=== PATIENT | female | born 1935 | race Caucasian/White ===

== ENCOUNTER 2016-12-28 11:29 | Emergency (ER) | payer OTHER ==
--- NOTE | 2016-12-28 12:22 | ED CLINICAL REPORT ---
Clinical Report - Physicians/Mid Levels [facility] [address] [place] [address] 12/28/2016 11:30 Patient: ZACH DIAMOND Time Seen: 12:09; initial patient contact. Arrived- By private vehicle. Historian- patient. HISTORY OF PRESENT ILLNESS Chief Complaint: UPPER EXTREMITY PAIN and SWELLING. (Pt reports a possible spider bite one week ago. She reports pain, redness and swelling to the area.).). Severity is described as being mild. The quality is noted to be aching. Modifying factors- made better by rest. Symptoms located in the area of the right wrist. The patient has had redness and swelling. Similar symptoms previously: None. Recent medical care: Not recently seen/assessed. REVIEW OF SYSTEMS No fever, chills, enlarged lymph nodes or neck pain. She has had a mild, itchy skin rash consisting of "redness" (right wrist). All systems otherwise negative, except as recorded above. PAST HISTORY See nurses notes. Problems: Asthma. Migraine Headache. Medications: Brimonidine Tartrate Ophthalmic. Albuterol Sulfate Inhalation. Flowvent. Gabapentin Oral 100 mg, at bedtime. Lisinopril Oral 5 mg, daily. Carvedilol Oral 6.5 mg , 2 x day. Simvastatin Oral 40 mg. Aspirin Childrens Oral. Allergies: No Known Drug Allergy. SOCIAL HISTORY Never smoker. No alcohol use or drug use. FAMILY HISTORY Negative. ADDITIONAL NOTES The nursing notes have been reviewed with agreement regarding the chief complaint, HPI, ROS, PMH and patient medications and allergies. PHYSICAL EXAM Vital Signs: 12/28/2016 11:44 BP: 152/62. HR: 62. RR: 20. O2 saturation: 100%. Temp: 97.9 F. Pain level now: 8/10. Have been reviewed. Hypertensive. Appearance: Alert. Oriented X3. No acute distress. Eyes: Pupils equal, round and reactive to light. Eyes normal inspection. Neck: Normal inspection. Neck supple. CVS: Normal heart rate and rhythm. Heart sounds normal. Respiratory: No respiratory distress. Breath sounds normal. Extremities: Swelling, warmth and erythema present in the right wrist. No drainage or lymphangitis. No upper extremity pulse deficit present. Upper extremity capillary refill not prolonged. Mild 1+ non-pitting edema of the right upper extremity involving the hand. No axillary adenopathy. Negative Tinel sign. Negative Alanna test. Right wrist: mild erythema and swelling located in the dorsal aspect of the wrist. Neurovascular intact distally. No tenderness. No joint effusion or limitation in ROM. Extremities otherwise negative. PROGRESS AND PROCEDURES Course of Care: Patient is stable. CLINICAL IMPRESSION Cellulitis of the right wrist. No foreign body present. INSTRUCTIONS Apply ice for 10 minutes three times a day for two days. Elevate affected areas above chest level. No strenuous activity. No dietary restrictions. Warnings: Further evaluation is necessary. It is very important to follow up with a physician. GENERAL WARNINGS: Return or contact your physician immediately if your condition worsens or changes unexpectedly, if not improving as expected, or if other problems arise. Prescription Medications: Trimethoprim-Sulfamethoxazole DS: take 1 tablet orally every 12 hours for 10 days. No refill. Follow-up: Return to the emergency department if not better. Follow up with your doctor in two days if not better. Understanding of the discharge instructions verbalized by patient. (Electronically signed by Kimi Nguyễn PA-C 12/28/2016 20:21)
--- NOTE | 2016-12-28 12:22 | ED NURSING NOTES ---
Clinical Report - Nurses [place] [address] [place] [address] 12/28/2016 11:30 Patient: ZACH DIAMOND TRIAGE Acuity: LEVEL 4. Chief Complaint: SPIDER BITE. Alert. No acute distress. SEPSIS SCREEN: Sepsis Screen. Negative (no infection suspected/documented). --11:52 Joann Batista R.N. 11:44 12/28/16. BP: 152/62. HR: 62. RR: 20. O2 saturation: 100%. Temp: 97.9 F (oral). Pain level now: 04/17. --11:52 Joann Batista R.N. Weight: 55.7 kg stated. Height/Length: 62 inches Per Patient. BMI: 22.5. --11:50 Joann Btaista R.N. Medications Aspirin Childrens Oral. --11:46 Joann Batista R.N. Simvastatin Oral 40 mg. --11:47 Joann Batista R.N. Carvedilol Oral 6.5 mg , 2 x day. --11:48 Joann Batista R.N. Lisinopril Oral 5 mg, daily. --11:48 Joann Batista R.N. Gabapentin Oral 100 mg, at bedtime. --11:48 Joann Batista R.N. Flowvent. --11:48 Joann Batista R.N. Albuterol Sulfate Inhalation. --11:48 Joann Batista R.N. Brimonidine Tartrate Ophthalmic. --11:49 Joann Batista R.N. Allergies No Known Drug Allergy. --11:49 Joann Batista R.N. Medication/allergy information source: the patient. --11:52 Joann Batista R.N. History Arrived by private vehicle. Historian: patient. Accompanied by spouse. Primary physician (Tereso). Location of injuries: left wrist. This occurred (1 weeks ago). Occurred at home. ( Pt reports a possible spider bite one week ago. She reports pain, redness and swelling to the area.). PAST MEDICAL HX: The patient has had a hysterectomy. SOCIAL HX: Smoker- current status unknown. Occasional alcohol use. No drug use. FALL RISK ASSESSMENT: Fall risk assessment completed. No fall risk identified. NUTRITIONAL RISK ASSESSMENT: The nutritional risk assessment revealed no deficiencies. FUNCTIONAL ASSESSMENT: Functional assessment: no impairments noted. LEARNING NEEDS ASSESSMENT: The learning needs assessment revealed no barriers. SKIN INTEGRITY ASSESSMENT: Skin integrity risk assessment completed. No skin integrity risk identified. --11:52 Joann Batista R.N. PROBLEMS: Migraine Headache. --11:50 Joann Batista R.N. Asthma. --11:52 Joann Batista R.N. The following entry was modified by Joann Batista R.N., 11:50 Reason - duplicate <<STRICKEN ENTRY-- Hypertension. --11:49 Joann Batista R.N. --END STRIKE>>. ADDITIONAL SURGERIES: Hysterectomy. Shoulder Surgery. Tonsillectomy. --11:52 Joann Batista R.N. Assessment GENERAL / NEURO / PSYCH: Alert. Oriented X 4. Appears in no acute distress. [place] Coma Scale: 15- eyes open spontaneously (4); best verbal response- oriented x 4 (5); best motor response- obeys commands (6). Patient appears calm and cooperative. RESPIRATORY: Respirations not labored. CVS: Capillary refill less than 2 seconds. GI / : Abdomen soft and nontender. SKIN: Mucous membranes are pink. Skin is warm and dry. --11:52 Joann Batista R.N. Interventions ID band on patient. To treatment room. --11:52 Joann Batista R.N. NURSING PROGRESS NOTES 11:52 12/28/16. Two patient identifiers checked. Call light placed in reach. Side rails up x 1. Bed placed in lowest position. Brakes of bed on. Patient ready for evaluation- chart flagged and ED physician and PA notified. --11:52 Joann Batista R.N. DISPOSITION / DISCHARGE Departure time: 12:25 Dec 28 2016. Condition at departure: improved and stable. No learning barriers present. Discharge instructions provided and reviewed with the patient. Reviewed medication(s). Prescription(s) given to the patient. Patient verbalized understanding. Written instructions provided in Latvian. The patient was discharged by the physician medical staff assistant. She was discharged home and accompanied by spouse. She left the Emergency Department ambulatory and via private vehicle. Spouse driving. --17:50 Joann Batista R.N. Locked/Released at 12/28/2016 17:50 by Joann Batista R.N.
--- NOTE | 2016-12-28 12:22 | ED NURSING NOTES ---
Clinical Report - Nurses [place] [address] [place] [address] 12/28/2016 11:30 Patient: ZACH DIAMOND TRIAGE Acuity: LEVEL 4. Chief Complaint: SPIDER BITE. Alert. No acute distress. SEPSIS SCREEN: Sepsis Screen. Negative (no infection suspected/documented). --11:52 Joann Batista R.N. 11:44 12/28/16. BP: 152/62. HR: 62. RR: 20. O2 saturation: 100%. Temp: 97.9 F (oral). Pain level now: 04/17. --11:52 Joann Batista R.N. Weight: 55.7 kg stated. Height/Length: 62 inches Per Patient. BMI: 22.5. --11:50 Joann Batista R.N. Medications Aspirin Childrens Oral. --11:46 Joann Batista R.N. Simvastatin Oral 40 mg. --11:47 Joann Batista R.N. Carvedilol Oral 6.5 mg , 2 x day. --11:48 Joann Batista R.N. Lisinopril Oral 5 mg, daily. --11:48 Joann Batista R.N. Gabapentin Oral 100 mg, at bedtime. --11:48 Joann Batista R.N. Flowvent. --11:48 Joann Batista R.N. Albuterol Sulfate Inhalation. --11:48 Joann Batista R.N. Brimonidine Tartrate Ophthalmic. --11:49 Joann Batista R.N. Allergies No Known Drug Allergy. --11:49 Joann Batista R.N. Medication/allergy information source: the patient. --11:52 Joann Batista R.N. History Arrived by private vehicle. Historian: patient. Accompanied by spouse. Primary physician (Tereso). Location of injuries: left wrist. This occurred (1 weeks ago). Occurred at home. ( Pt reports a possible spider bite one week ago. She reports pain, redness and swelling to the area.). PAST MEDICAL HX: The patient has had a hysterectomy. SOCIAL HX: Smoker- current status unknown. Occasional alcohol use. No drug use. FALL RISK ASSESSMENT: Fall risk assessment completed. No fall risk identified. NUTRITIONAL RISK ASSESSMENT: The nutritional risk assessment revealed no deficiencies. FUNCTIONAL ASSESSMENT: Functional assessment: no impairments noted. LEARNING NEEDS ASSESSMENT: The learning needs assessment revealed no barriers. SKIN INTEGRITY ASSESSMENT: Skin integrity risk assessment completed. No skin integrity risk identified. --11:52 Joann Batista R.N. PROBLEMS: Migraine Headache. --11:50 Joann Batista R.N. Asthma. --11:52 Joann Batista R.N. The following entry was modified by Joann Batista R.N., 11:50 Reason - duplicate <<STRICKEN ENTRY-- Hypertension. --11:49 Joann Batista R.N. --END STRIKE>>. ADDITIONAL SURGERIES: Hysterectomy. Shoulder Surgery. Tonsillectomy. --11:52 Joann Batista R.N. Assessment GENERAL / NEURO / PSYCH: Alert. Oriented X 4. Appears in no acute distress. [place] Coma Scale: 15- eyes open spontaneously (4); best verbal response- oriented x 4 (5); best motor response- obeys commands (6). Patient appears calm and cooperative. RESPIRATORY: Respirations not labored. CVS: Capillary refill less than 2 seconds. GI / : Abdomen soft and nontender. SKIN: Mucous membranes are pink. Skin is warm and dry. --11:52 Joann Batista R.N. Interventions ID band on patient. To treatment room. --11:52 Joann Batista R.N. NURSING PROGRESS NOTES 11:52 12/28/16. Two patient identifiers checked. Call light placed in reach. Side rails up x 1. Bed placed in lowest position. Brakes of bed on. Patient ready for evaluation- chart flagged and ED physician and PA notified. --11:52 Joann Batista R.N. DISPOSITION / DISCHARGE Departure time: 12:25 Dec 28 2016. Condition at departure: improved and stable. No learning barriers present. Discharge instructions provided and reviewed with the patient. Reviewed medication(s). Prescription(s) given to the patient. Patient verbalized understanding. Written instructions provided in Khmer. The patient was discharged by the physician assistant men's lacrosse coach. She was discharged home and accompanied by spouse. She left the Emergency Department ambulatory and via private vehicle. Spouse driving. --17:50 Joann Batisat R.N. Locked/Released at 12/28/2016 17:50 by Joann Batista R.N.
--- NOTE | 2016-12-28 20:21 | ED DISCHARGE INSTRUCTIONS ---
Patient: ZACH DIAMOND General Instructions [facility] VisitID: [id number] [place] [address] 81y, F Registration Date/Time: 12/28/2016 Cellulitis of the right wrist. No foreign body present. INSTRUCTIONS Apply ice for 10 minutes three times a day for two days. Elevate affected areas above chest level. No strenuous activity. No dietary restrictions. Warnings: Further evaluation is necessary. It is very important to follow up with a physician. GENERAL WARNINGS: Return or contact your physician immediately if your condition worsens or changes unexpectedly, if not improving as expected, or if other problems arise. Prescription Medications: Trimethoprim-Sulfamethoxazole DS: take 1 tablet orally every 12 hours for 10 days. No refill. Follow-up: Return to the emergency department if not better. Follow up with your doctor in two days if not better. Understanding of the discharge instructions verbalized by patient. ADDITIONAL INFORMATION Cellulitis You have an infection of the skin known as cellulitis. This usually starts with a scrape, cut, insect bite, blister or other opening in the skin which becomes infected. This is a serious condition. It must be watched closely to be sure the infection is not spreading. With antibiotic treatment, the size of the red area will gradually shrink in size until the skin returns to normal. This will take 7-10 days. The red area should never increase in size once the antibiotic medicine has been started. Occasionally, an infection will be resistant to one antibiotic and another one will have to be used. Home Care: 1) Limit the use of the affected part, since excess movement can cause the infection to spread. 2) If the infection is on your leg, walk as little as possible during the first few days of the treatment. Keep your leg elevated while sitting. This will reduce swelling. 3) Take all of the antibiotic medicine exactly as directed until it is gone. Be careful not to miss any doses, especially during the first seven days. Follow Up with your doctor or this facility as directed. Check the infected area daily for the warning signs listed below. Get Prompt Medical Attention if any of the following occur: -- Spreading area of redness -- Increasing swelling or pain -- Appearance of pus or drainage -- Fever over 100.4 F (38.0 C) oral, or over 101.4 F (38.6 C) rectal, after two days on antibiotics Sulfamethoxazole, Trimethoprim Oral tablet What is this medicine? SULFAMETHOXAZOLE; TRIMETHOPRIM or SMX-TMP (suhl fuh meth OK tomy zohl; trye METH oh prim) is a combination of a sulfonamide antibiotic and a second antibiotic, trimethoprim. It is used to treat or prevent certain kinds of bacterial infections. It will not work for colds, flu, or other viral infections. How should I use this medicine? Take this medicine by mouth with a full glass of water. Follow the directions on the prescription label. Take your medicine at regular intervals. Do not take it more often than directed. Do not skip doses or stop your medicine early. Talk to your christian science healer regarding the use of this medicine in children. Special care may be needed. This medicine has been used in children as young as 2 months of age. What side effects may I notice from receiving this medicine? Side effects that you should report to your doctor or health after school caregiver as soon as possible: allergic reactions like skin rash or hives, swelling of the face, lips, or tongue breathing problems fever or chills, sore throat irregular heartbeat, chest pain joint or muscle pain pain or difficulty passing urine red pinpoint spots on skin redness, blistering, peeling or loosening of the skin, including inside the mouth unusual bleeding or bruising unusually weak or tired yellowing of the eyes or skin Side effects that usually do not require medical attention (report to your doctor or health after school caregiver if they continue or are bothersome): diarrhea dizziness headache loss of appetite nausea, vomiting nervousness What may interact with this medicine? Do not take this medicine with any of the following medications: aminobenzoate potassium dofetilide metronidazole This medicine may also interact with the following medications: JAX inhibitors like benazepril, enalapril, lisinopril, and ramipril cyclosporine digoxin diuretics indomethacin medicines for diabetes methenamine methotrexate phenytoin potassium supplements pyrimethamine sulfinpyrazone tricyclic antidepressants warfarin What if I miss a dose? If you miss a dose, take it as soon as you can. If it is almost time for your next dose, take only that dose. Do not take double or extra doses. Where should I keep my medicine? Keep out of the reach of children. Store at room temperature between 20 to 25 degrees C (68 to 77 degrees F). Protect from light. Throw away any unused medicine after the expiration date. What should I tell my health care provider before I take this medicine? They need to know if you have any of these conditions: anemia asthma being treated with anticonvulsants if you frequently drink alcohol containing drinks kidney disease liver disease low level of folic acid or paldums-[id number] dehydrogenase poor nutrition or malabsorption porphyria severe allergies thyroid disorder an unusual or allergic reaction to sulfamethoxazole, trimethoprim, sulfa drugs, other medicines, foods, dyes, or preservatives or trying to get breast-feeding What should I watch for while using this medicine? Tell your doctor or health after school caregiver if your symptoms do not improve. Drink several glasses of water a day to reduce the risk of kidney problems. Do not treat diarrhea with over the counter products. Contact your doctor if you have diarrhea that lasts more than 2 days or if it is severe and watery. This medicine can make you more sensitive to the sun. Keep out of the sun. If you cannot avoid being in the sun, wear protective clothing and use a sunscreen. Do not use sun lamps or tanning beds/booths. You have been given the following additional information: Cellulitis Sulfamethoxazole, Trimethoprim Oral tablet No strenuous activity. (Electronically signed by Kimi Nguyễn PA-C 12/28/2016 20:21)
--- NOTE | 2016-12-28 20:21 | ED DISCHARGE INSTRUCTIONS ---
Patient: ZACH DIAMOND General Instructions [facility] VisitID: [id number] [place] [address] 81y, F Registration Date/Time: 12/28/2016 Cellulitis of the right wrist. No foreign body present. INSTRUCTIONS Apply ice for 10 minutes three times a day for two days. Elevate affected areas above chest level. No strenuous activity. No dietary restrictions. Warnings: Further evaluation is necessary. It is very important to follow up with a physician. GENERAL WARNINGS: Return or contact your physician immediately if your condition worsens or changes unexpectedly, if not improving as expected, or if other problems arise. Prescription Medications: Trimethoprim-Sulfamethoxazole DS: take 1 tablet orally every 12 hours for 10 days. No refill. Follow-up: Return to the emergency department if not better. Follow up with your doctor in two days if not better. Understanding of the discharge instructions verbalized by patient. ADDITIONAL INFORMATION Cellulitis You have an infection of the skin known as cellulitis. This usually starts with a scrape, cut, insect bite, blister or other opening in the skin which becomes infected. This is a serious condition. It must be watched closely to be sure the infection is not spreading. With antibiotic treatment, the size of the red area will gradually shrink in size until the skin returns to normal. This will take 7-10 days. The red area should never increase in size once the antibiotic medicine has been started. Occasionally, an infection will be resistant to one antibiotic and another one will have to be used. Home Care: 1) Limit the use of the affected part, since excess movement can cause the infection to spread. 2) If the infection is on your leg, walk as little as possible during the first few days of the treatment. Keep your leg elevated while sitting. This will reduce swelling. 3) Take all of the antibiotic medicine exactly as directed until it is gone. Be careful not to miss any doses, especially during the first seven days. Follow Up with your doctor or this facility as directed. Check the infected area daily for the warning signs listed below. Get Prompt Medical Attention if any of the following occur: -- Spreading area of redness -- Increasing swelling or pain -- Appearance of pus or drainage -- Fever over 100.4 F (38.0 C) oral, or over 101.4 F (38.6 C) rectal, after two days on antibiotics Sulfamethoxazole, Trimethoprim Oral tablet What is this medicine? SULFAMETHOXAZOLE; TRIMETHOPRIM or SMX-TMP (suhl fuh meth OK tomy zohl; trye METH oh prim) is a combination of a sulfonamide antibiotic and a second antibiotic, trimethoprim. It is used to treat or prevent certain kinds of bacterial infections. It will not work for colds, flu, or other viral infections. How should I use this medicine? Take this medicine by mouth with a full glass of water. Follow the directions on the prescription label. Take your medicine at regular intervals. Do not take it more often than directed. Do not skip doses or stop your medicine early. Talk to your pearl technician regarding the use of this medicine in children. Special care may be needed. This medicine has been used in children as young as 2 months of age. What side effects may I notice from receiving this medicine? Side effects that you should report to your doctor or health manager medicare as soon as possible: allergic reactions like skin rash or hives, swelling of the face, lips, or tongue breathing problems fever or chills, sore throat irregular heartbeat, chest pain joint or muscle pain pain or difficulty passing urine red pinpoint spots on skin redness, blistering, peeling or loosening of the skin, including inside the mouth unusual bleeding or bruising unusually weak or tired yellowing of the eyes or skin Side effects that usually do not require medical attention (report to your doctor or health manager medicare if they continue or are bothersome): diarrhea dizziness headache loss of appetite nausea, vomiting nervousness What may interact with this medicine? Do not take this medicine with any of the following medications: aminobenzoate potassium dofetilide metronidazole This medicine may also interact with the following medications: JAX inhibitors like benazepril, enalapril, lisinopril, and ramipril cyclosporine digoxin diuretics indomethacin medicines for diabetes methenamine methotrexate phenytoin potassium supplements pyrimethamine sulfinpyrazone tricyclic antidepressants warfarin What if I miss a dose? If you miss a dose, take it as soon as you can. If it is almost time for your next dose, take only that dose. Do not take double or extra doses. Where should I keep my medicine? Keep out of the reach of children. Store at room temperature between 20 to 25 degrees C (68 to 77 degrees F). Protect from light. Throw away any unused medicine after the expiration date. What should I tell my health care provider before I take this medicine? They need to know if you have any of these conditions: anemia asthma being treated with anticonvulsants if you frequently drink alcohol containing drinks kidney disease liver disease low level of folic acid or [id number] dehydrogenase poor nutrition or malabsorption porphyria severe allergies thyroid disorder an unusual or allergic reaction to sulfamethoxazole, trimethoprim, sulfa drugs, other medicines, foods, dyes, or preservatives or trying to get breast-feeding What should I watch for while using this medicine? Tell your doctor or health manager medicare if your symptoms do not improve. Drink several glasses of water a day to reduce the risk of kidney problems. Do not treat diarrhea with over the counter products. Contact your doctor if you have diarrhea that lasts more than 2 days or if it is severe and watery. This medicine can make you more sensitive to the sun. Keep out of the sun. If you cannot avoid being in the sun, wear protective clothing and use a sunscreen. Do not use sun lamps or tanning beds/booths. You have been given the following additional information: Cellulitis Sulfamethoxazole, Trimethoprim Oral tablet No strenuous activity. (Electronically signed by Kimi Nguyễn PA-C 12/28/2016 20:21)
--- NOTE | 2016-12-28 20:21 | ED MAR SUMMARY ---
..... Medication Administration Record [facility] [address] [place] [place] [id number] Patient: ZACH DIAMOND Visit ID: [id number] 81y, F Weight: 55.7 kg Height/Length: 62 in BMI: 22.5 ALLERGIES: No Known Drug Allergy
--- NOTE | 2016-12-28 20:21 | ED MED RECONCILIATION SUMMARY ---
Patient: ZACH DIAMOND Medication Reconciliation Report [facility] VisitID: [id number] [address] [place] [address] 81y, F Registration Date/Time: 12/28/2016 Weight: 55.7 kg Height/Length: 62 in. BMI: 22.5 ALLERGIES: No Known Drug Allergy The patient's Home Medications are listed below: THE FOLLOWING MEDICATIONS NEED TO BE RECONCILED: Albuterol Sulfate Inhalation Aspirin Childrens Oral Brimonidine Tartrate Ophthalmic Carvedilol Oral 6.5 mg , 2 x day Flowvent Gabapentin Oral 100 mg, at bedtime Lisinopril Oral 5 mg, daily Simvastatin Oral 40 mg The source(s) of the original Home Medication information: patient The following Medications were given to the patient in the Emergency Department: None. The following Medications were prescribed to the patient: Trimethoprim-Sulfamethoxazole DS: take 1 tablet orally every 12 hours for 10 days. No refill. -- Kimi Nguyễn PA-C
--- NOTE | 2016-12-28 20:21 | ED MAR SUMMARY ---
..... Medication Administration Record [facility] [address] [place] [id number] Patient: ZACH DIAMOND Visit ID: [id number] 81y, F Weight: 55.7 kg Height/Length: 62 in BMI: 22.5 ALLERGIES: No Known Drug Allergy
--- NOTE | 2016-12-28 20:21 | ED MED RECONCILIATION SUMMARY ---
Patient: ZACH DIAMOND Medication Reconciliation Report [facility] VisitID: [id number] [address] [place] [address] 81y, F Registration Date/Time: 12/28/2016 Weight: 55.7 kg Height/Length: 62 in. BMI: 22.5 ALLERGIES: No Known Drug Allergy The patient's Home Medications are listed below: THE FOLLOWING MEDICATIONS NEED TO BE RECONCILED: Albuterol Sulfate Inhalation Aspirin Childrens Oral Brimonidine Tartrate Ophthalmic Carvedilol Oral 6.5 mg , 2 x day Flowvent Gabapentin Oral 100 mg, at bedtime Lisinopril Oral 5 mg, daily Simvastatin Oral 40 mg The source(s) of the original Home Medication information: patient The following Medications were given to the patient in the Emergency Department: None. The following Medications were prescribed to the patient: Trimethoprim-Sulfamethoxazole DS: take 1 tablet orally every 12 hours for 10 days. No refill. -- Kimi Nguyễn PA-C
== END 2016-12-28 12:25 | disposition home or self-care (01) ==
LOC: ED SRH 11:29
DX: L03.113 Cellulitis of right upper limb (principal); J45.909 Unspecified asthma, uncomplicated; Z79.51 Long term (current) use of inhaled steroids; Z79.82 Long term (current) use of aspirin; Z79.899 Other long term (current) drug therapy